=== PATIENT | female | born 1990 | race American Indian/Alaskan Native ===

== ENCOUNTER 2017-02-13 09:29 | Emergency (ER) | payer MEDICAID ==
[2017-02-13 09:32] VITALS: BMI 18.6
[2017-02-13 09:34] VITALS: BP 110/69; PULSE 82; RESP 18; TEMP 98.2; O2SAT 99
--- NOTE | 2017-02-13 09:54 | C.PDOC ---
History Of Present Illness 27 yr old female presents to the ER for evaluation of right sided sore throat since yesterday. Patient states the pain is worse with swallowing. Patient also reports of gum swelling to the top right side. Patient denies sick contact, fever, chest pain, SOB, runny nose, dental pain, dental work, vomiting or headache. R SORE THROAT SINCE YEST. NO FEVER, SICK CONTACTS. PAIN WORSE W SWALLOWING. NO ASSOC RUNNY NOSE, OTHER URI SX. ALSO CO GUM SWELLING TOP RIGHT SIDE. NO DENTAL PAIN EXAM NARD HEENT POOR EFFORT DUE TO PAIN. +R TONSILAR SWELL NO ERYTHEMA, EXUDATE; UVULA MIDLINE; NO DROOLING; VOICE WNL; NOSE CLEAR; NO GUM ABSCESS, REDNESS, GROSS SWELL MDM DEX, NSAIDS, SALT WATER GARGLES FU PMD Time Seen by Provider: 02/13/17 09:39 Chief Complaint (Nursing): Dental Pain History Per: Patient History/Exam Limitations: no limitations Onset/Duration Of Symptoms: Days (1) Sick Contacts (Context): None Past Medical History Reviewed: Historical Data, Nursing Documentation, Vital Signs Vital Signs: Last Vital Signs Temp 98.2 F 02/13/17 09:32 Pulse 82 02/13/17 09:32 Resp 18 02/13/17 09:32 BP 110/69 02/13/17 09:32 Pulse Ox 99 02/13/17 10:30 - Medical History PMH: Denies: Depression - [facility] Procedures INJECT/INFUSE NEC (11/22/13) Family History: States: No Known Family Hx - Social History Hx Tobacco Use: No Hx Alcohol Use: Yes Hx Substance Use: No - Immunization History Hx Tetanus Toxoid Vaccination: Yes Hx Influenza Vaccination: Yes Hx Pneumococcal Vaccination: No Review Of Systems Except As Marked, All Systems Reviewed And Found Negative. Constitutional: Negative for: Fever ENT: Positive for: Throat Pain (Right sided sore throat ), Other ((+) Gum swelling to the top right side. ). Negative for: Nose Discharge Cardiovascular: Negative for: Chest Pain Respiratory: Negative for: Shortness of Breath Gastrointestinal: Negative for: Vomiting Neurological: Negative for: Headache Physical Exam - Physical Exam Appears: Well, Non-toxic, No Acute Distress Skin: Warm, Dry, No Rash Head: Atraumatic, Normacephalic Eye(s): bilateral: Normal Inspection, PERRL, EOMI Ear(s): Bilateral: Normal Nose: Normal, No Discharge Oral Mucosa: Moist Gingiva: No Erythema, No Swelling, No Abscess Throat: No Erythema, No Exudate, No Drooling, Other ((+) Right tonsilar swelling. Uvula midline. ) Neck: Normal, Normal ROM, Supple Chest: Symmetrical, No Tenderness Cardiovascular: Rhythm Regular, No Murmur Respiratory: Normal Breath Sounds, No Rales, No Rhonchi, No Stridor, No Wheezing Extremity: Normal ROM, No Swelling Neurological/Psych: Oriented x3, Normal Speech, Normal Motor ED Course And Treatment O2 Sat by Pulse Oximetry: 99 Medical Decision Making Medical Decision Making: PLAN: * Motrin PO Disposition Counseled Patient/Family Regarding: Diagnosis, Need For Followup, Rx Given - Disposition Referrals: [facility] [Outside] [facility],PMD [Other] Disposition: HOME/ ROUTINE Disposition Time: 09:51 Condition: IMPROVED Prescriptions: Dexamethasone 12 mg PO ONCE #2 tab Naproxen 500 mg PO BID #30 tab Instructions: Pharyngitis (ED) Forms: Work Excuse - Clinical Impression Clinical Impression: Pharyngitis - Scribe Statement The provider has reviewed the documentation as recorded by the Desireeibe Serenity Peters Provider Attestation: All medical record entries made by the Desireeibrehan were at my direction and personally dictated by me. I have reviewed the chart and agree that the record accurately reflects my personal performance of the history, physical exam, medical decision making, and the department course for this patient. I have also personally directed, reviewed, and agree with the discharge instructions and disposition.
== END 2017-02-13 10:07 | disposition home or self-care (01) ==
LOC: C.ER 09:29
DX: J02.9 Acute pharyngitis, unspecified (principal)

== ENCOUNTER 2018-04-10 14:07 | Emergency (ER) | payer MEDICAID ==
[2018-04-10 14:08] VITALS: BMI 18.6
[2018-04-10 14:13] VITALS: BP 119/79; PULSE 103; RESP 16; TEMP 98.3; O2SAT 99
--- NOTE | 2018-04-10 14:33 | C.PDOC ---
History Of Present Illness 28 year old female presents to the ED for evaluation after she sustained a laceration to her inner lip around 2 days ago. Patient states she was not paying attention and accidentally walked into a pole and bit her inner lip. She denies loss of consciousness, active bleeding, headache, neck pain, or other injuries at this time. Time Seen by Provider: 04/10/18 14:21 Chief Complaint (Nursing): Abnormal Skin Integrity History Per: Patient History/Exam Limitations: no limitations Onset/Duration Of Symptoms: Days (2) Current Symptoms Are (Timing): Still Present Quality Of Symptoms: Painful Additional History Per: Patient Past Medical History Reviewed: Historical Data, Nursing Documentation, Vital Signs Vital Signs: Last Vital Signs Temp 98.3 F 04/10/18 14:11 Pulse 103 H 04/10/18 14:11 Resp 16 04/10/18 15:12 BP 119/79 04/10/18 14:11 Pulse Ox 99 04/10/18 15:38 - Medical History PMH: No Chronic Diseases Denies: Depression Surgical History: No Surg Hx - [facility] Procedures INJECT/INFUSE NEC (11/22/13) Family History: States: Unknown Family Hx - Social History Hx Tobacco Use: No Hx Alcohol Use: No Hx Substance Use: No - Immunization History Hx Tetanus Toxoid Vaccination: Yes Hx Influenza Vaccination: Yes Hx Pneumococcal Vaccination: No Review Of Systems Musculoskeletal: Negative for: Neck Pain Skin: Positive for: Other (laceration to inner lip) Neurological: Negative for: Headache, Other (loss of consciousness) Physical Exam - Physical Exam Appears: Non-toxic, No Acute Distress Skin: Normal Color, Warm, Dry Head: Atraumatic, Normacephalic, No Tenderness, No Laceration Eye(s): bilateral: Normal Inspection Oral Mucosa: Moist Tongue: Normal Appearing, No Bite, No Laceration Lips: Other (linear wound to right lower inner lip. no active bleeding, purulent drainage, ulceration or foul odor ) Teeth: Normal Dentition, No Loose, No Avulsed Gingiva: Normal Appearing, No Ulceration Neck: Normal ROM, Supple Extremity: Normal ROM Neurological/Psych: Oriented x3, Normal Speech, Normal Cognition ED Course And Treatment O2 Sat by Pulse Oximetry: 99 (on RA) Pulse Ox Interpretation: Normal Medical Decision Making Medical Decision Making: Patient with inner lip laceration occurred 2 days prior. Exam shows healing linear wound to right lower inner lip. No purulent drainage, bleeding ulceration or foul odor. No indication for laceration repair at this time. Explain to patient wound is already healing and will fully heal in few days. Disposition Counseled Patient/Family Regarding: Diagnosis, Need For Followup - Disposition Disposition: HOME/ ROUTINE Disposition Time: 14:31 Condition: GOOD Additional Instructions: Wound will self heal apply vaseline or ointment to outer lip Instructions: How to Care for Your Mouth and Teeth Forms: [employer] (Frisian) - POA Present On Arrival: None - Clinical Impression Clinical Impression: Laceration of lip with delay in treatment - PA / EQUIPMENT ASSOCIATE / Resident Statement MD/DO has reviewed & agrees with the documentation as recorded. - Scribe Statement The provider has reviewed the documentation as recorded by the Scribe (Aileen Augustin) All medical record entries made by the Scribe were at my direction and personally dictated by me. I have reviewed the chart and agree that the record accurately reflects my personal performance of the history, physical exam, medical decision making, and the department course for this patient. I have also personally directed, reviewed, and agree with the discharge instructions and disposition.
== END 2018-04-10 15:12 | disposition home or self-care (01) ==
LOC: C.ER 14:07
DX: S01.511A Laceration without foreign body of lip, initial encounter (principal); W22.8XXA Striking against or struck by other objects, initial encounter